=== PATIENT | male | born 2000 | race Two or more races ===

== ENCOUNTER 2024-01-31 16:14 | Emergency (ER) | payer OTHER ==
[2024-01-31 16:54] LABS: BASOPHILS % (AUTO) 0.3 %; EOSINOPHILS # (AUTO) 0.1 10^3/uL (0.0-0.7); EOSINOPHILS % (AUTO) 1.2 %; HCT - HEMATOCRIT 44.8 % (42.0-52.0); HGB - HEMOGLOBIN 14.4 g/dL (14.0-18.0); LYMPHOCYTES # (AUTO) 4.7 10^3/uL (1.5-3.5); LYMPHOCYTES % (AUTO) 49.7 %; MEAN CORPUSCULAR HEMOGLOBIN 28.9 pg (27.0-31.0); MEAN CORPUSCULAR HGB CONC 32.1 g/dL (32.0-36.0); MEAN PLATELET VOLUME 10.8 fL (7.4-11.4); MONOCYTES # (AUTO) 0.6 10^3/uL (0.0-1.0); MONOCYTES % (AUTO) 6.6 %; NEUTROPHILS % (AUTO) 42.1 %; PLT - PLATELET COUNT 281 10^3/uL (130-450); RED BLOOD COUNT 4.98 10^6/uL (4.70-6.10); RED CELL DISTRIBUTION WIDTH 11.8 % (12.0-15.0); WHITE BLOOD COUNT 9.4 x10^3/uL (4.8-10.8)
[2024-01-31 17:15] LABS: ALBUMIN 4.2 g/dL (3.2-5.5); ALBUMIN/GLOBULIN RATIO 1.3 (1.0-2.2); BILIRUBIN,TOTAL 0.4 mg/dL (0.2-1.0); CALCIUM 9.7 mg/dL (8.5-10.3); CREATININE 1.2 mg/dL (0.6-1.3); POTASSIUM 4.2 mmol/L (3.5-4.5); TOTAL PROTEIN 7.5 g/dL (6.4-8.9)
--- NOTE | 2024-01-31 18:06 | ED Physician Documentation ---
History of Present Illness - Stated complaint Stated Complaint: - Chief complaint Chief Complaint: General - History obtained from History obtained from: Patient - Additonal information Additional information: About a week ago he was having a bowel movement and "scratched his balls." And noticed some lumps on his scrotum, 1 on the right that is skin base and 1 more internal on the left. They are not painful. No urinary complaints. No concern for STDs. PD PAST MEDICAL HISTORY - Past Medical History Past Medical History: No Cardiovascular: None Respiratory: None Neuro: None Endocrine/Autoimmune: None GI: None : None HEENT: None Psych: None Musculoskeletal: None Derm: None - Past Surgical History Past Surgical History: No - Present Medications Home Medications: Ambulatory Orders Medication Instructions Recorded Confirmed No Known Home Medications 01/31/24 01/31/24 - Allergies Allergies/Adverse Reactions: Allergies Allergy/AdvReac Type Severity Reaction Status Date / Time No Known Drug Allergies Allergy Verified 01/31/24 16:30 - Social History Does the pt smoke?: No Smoking Status: Never smoker Does the pt drink ETOH?: No Does the pt have substance abuse?: No - Immunizations Immunizations are current?: Yes - POLST Patient has POLST: No PD ED PE NORMAL - Vitals Vital signs reviewed: Yes - General General: Alert and oriented X 3, No acute distress - Male Male : Other (On the right posteromedial scrotum there is a small probably sebaceous cyst that is skin based. On the left there is a small mass superior to the testicle. No tenderness. Normal lie.) - Neuro Neuro: Alert and oriented X 3 Results - Vitals Vitals: Vital Signs - 24 hr 01/31/24 01/31/24 01/31/24 16:23 18:19 19:40 Temperature 36.6 C Heart Rate 52 L 70 72 Respiratory 16 15 16 Rate Blood Pressure 142/70 H 130/71 128/75 O2 Saturation 99 99 98 Oxygen O2 Source Room air - Labs Labs: Laboratory Tests 01/31/24 01/31/24 01/31/24 16:32 16:49 16:49 WBC 9.4 RBC 4.98 Hgb 14.4 Hct 44.8 MCV 90.0 MCH 28.9 MCHC 32.1 RDW 11.8 L Plt Count 281 MPV 10.8 Neut # (Auto) 4.0 Lymph # (Auto) 4.7 H [place] # (Auto) 0.6 Eos # (Auto) 0.1 Baso # (Auto) 0.0 Absolute Nucleated RBC 0.00 Nucleated RBC % 0.0 Sodium 139 Potassium 4.2 Chloride 104 Carbon Dioxide 29 Anion Gap 6.0 BUN 18 Creatinine 1.2 Estimated GFR (MDRD) 76 L Glucose 76 Calcium 9.7 Total Bilirubin 0.4 AST 35 ALT 58 Alkaline Phosphatase 48 Total Protein 7.5 Albumin 4.2 Globulin 3.3 Albumin/Globulin Ratio 1.3 Lipase 24 Urine Color YELLOW Urine Clarity CLEAR Urine pH 7.0 Ur Specific Mongo 1.020 Urine Protein NEGATIVE Urine Glucose (UA) NEGATIVE Urine Ketones NEGATIVE Urine Occult Blood NEGATIVE Urine Nitrite NEGATIVE Urine Bilirubin NEGATIVE Urine Urobilinogen 0.2 (NORMAL) Ur Leukocyte Esterase A Ur Microscopic Review NOT INDICATED Urine Culture Comments NOT INDICATED - Rads (name of study) Testicular ultrasound showing multiple left epididymal cyst Relevant Findings:: Final report received, EMP independent interpretation of test PD Medical Decision Making - ED course ED course: He has relatively asymptomatic cysts that he just felt the other day while examining himself basically. They correspond to epididymal cyst on the left and a skin base sebaceous cyst on the right. Departure - Departure Disposition: 01 Home, Self Care Clinical Impression: Testicular pain Condition: Good Record reviewed to determine appropriate education?: Yes Comments: x you have some small epididymal cysts on the left and the 1 on the right is actually a skin based sebaceous cyst. Follow-up with your flight surgeon, but there is no Emergency present that would need specific urgent follow-up. Forms: PCP List Discharge Date/Time: 01/31/24 19:41
[2024-01-31 18:36] LABS: BILIRUBIN,URINE NEGATIVE (NEGATIVE); GLUCOSE, URINE (UA) NEGATIVE (NEGATIVE); KETONES,URINE (UA) NEGATIVE (NEGATIVE); NITRITE,URINE NEGATIVE (NEGATIVE); OCCULT BLOOD,URINE NEGATIVE (NEGATIVE); PROTEIN,URINE NEGATIVE (NEGATIVE); UROBILINOGEN,URINE 0.2 (NORMAL) E.U./dL (NORMAL)
[2024-01-31 18:38] LABS: CLARITY,URINE CLEAR (CLEAR); LEUKOCYTE ESTERASE, URINE A (NEGATIVE)
[2024-01-31 19:48] VITALS: BP 128/75; O2SAT 98
--- NOTE | 2024-01-31 20:00 | Ultrasound Report ---
PROCEDURE: Testicle w/Doppler INDICATIONS: Testicular pain and lumps TECHNIQUE: Real-time scanning was performed of the scrotum and testicles, with image documentation. Color and p ulse Doppler interrogation was performed of both testicles. COMPARISON: None. FINDINGS: Right: Testicle is normal in size at 5.2 x 2.5 x 3.6 cm, and homogenous in echotexture. Epididymis is normal in overall size and morphology. Small hydrocele. No varicoceles. Overlying scrotal skin i s normal in thickness. Left: Testicle is normal in size at 4.7 x 2.4 x 3 cm, and homogeneous in echotexture. There are mult iple cysts at the epididymal head and body, measuring up to 1 cm. No significant epididymal abnormali ty otherwise Small hydrocele. No varicoceles. Overlying scrotal skin is normal in thickness. Doppler: Color and pulse Doppler demonstrate normal and symmetric arterial flow in both testicles. IMPRESSION: Multiple cysts at the left epididymal head and body corresponding to palpable abnormality. No evidence of acute torsion. Small bilateral hydroceles. Reviewed by: Paulie Phillips MD on 01/31/2024 7:59 PM PDT Approved by: Paulie Phillips MD on 01/31/2024 7:59 PM PDT Station ID: [id number]
== END 2024-01-31 19:41 | disposition home or self-care (01) ==
LOC: ED 16:14
DX: N50.3 Cyst of epididymis (principal); N50.89 Other specified disorders of the male genital organs
CPT/HCPCS: 36415; 80053; 81001; 81003; 83690; 85025; 87086; 93975; 99283; 99284